=== PATIENT | female | born 1970 | race Caucasian/White ===

== ENCOUNTER 2017-07-17 10:51 | Emergency (ER) | payer SELFPAY ==
[~2017-07-17] VITALS: Ht 165.1 cm; Wt 50.0 kg
[~2017-07-17 10:51] MED LIST: LANTUSP SQ; LORTA5 PO; NOVOLOGP2 SQ; ROBA750T3 PO
[2017-07-17 10:56] VITALS: BP 120/66; PULSE 88; RESP 15; TEMP 98.1; O2SAT 98
== END 2017-07-17 11:17 | disposition left against medical advice (07) ==
LOC: NED 10:51
DX: Z04.3 Encounter for examination and observation following other accident (principal); Z53.21 Procedure and treatment not carried out due to patient leaving prior to being seen by health care provider
CPT/HCPCS: 99281

== ENCOUNTER 2017-07-25 17:48 | Emergency (ER) | payer OTHER, BC ==
[~2017-07-25] VITALS: Ht 165.1 cm; Wt 55.0 kg
[2017-07-25 18:03] VITALS: BP 100/62; PULSE 81; RESP 20; TEMP 98.8; O2SAT 97
[2017-07-25] MEDS ORDERED: INSU100V2 SQ (18:22)
[2017-07-25] MEDS ORDERED: INSU100V3 SQ (18:22)
[2017-07-25] MEDS ORDERED: IBUP-232 PO (18:25)
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
[2017-07-25] MEDS ORDERED: IBUPROFEN 600 MG TAB PO ONE (18:30)
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
== END 2017-07-25 20:16 | disposition home or self-care (01) ==
LOC: PHED 17:48
DX: S13.4XXA Sprain of ligaments of cervical spine, initial encounter (principal); E10.9 Type 1 diabetes mellitus without complications; T14.8 Other injury of unspecified body region; V43.62XA Car passenger injured in collision with other type car in traffic accident, initial encounter; Y92.410 Unspecified street and highway as the place of occurrence of the external cause; Y99.8 Other external cause status
CPT/HCPCS: 72040; 72072; 72100; 99283

== ENCOUNTER 2018-01-22 20:45 | Inpatient (IN) | payer MEDICAID ==
[~2018-01-22] VITALS: Ht 165.1 cm; Wt 47.0 kg
[~2018-01-22 20:45] MED LIST changes: +IBUP-232 PO; +INSU100V2 SQ; +INSU100V3 SQ; -LANTUSP SQ; -LORTA5 PO; -NOVOLOGP2 SQ; -ROBA750T3 PO
[2018-01-22 21:17] VITALS: BP 127/77; PULSE 98; RESP 16; TEMP 97.9; O2SAT 100
[2018-01-22 22:25] VITALS: RESP 16; O2SAT 97
[2018-01-22 23:00] VITALS: BP 119/66; PULSE 101; RESP 16; O2SAT 100
[2018-01-23] VITALS (14 sets, daily range): BP systolic 107–137; BP diastolic 51–74; PULSE 72–107; RESP 12–20; TEMP 97.7–98.8; O2SAT 98–100
[2018-01-23] MEDS ORDERED: SODIUM CHLOR 0.9% 1000 ML INJ 1,000 ML IV SCH (00:43)
[2018-01-23] MEDS ORDERED: ONDANSETRON HCL 4 MG/2 ML VIAL IVP ONE (00:45)
[2018-01-23] MEDS ORDERED: SODIUM CHLORIDE 0.9% FLUSH 10 ML FLUSH IV FLUSH PRN ×2 (00:45→03:45)
--- NOTE | 2018-01-23 01:54 | RADRPT ---
EXAM DATE/TIME: 01/23/2018 01:00 [facility] COMPARISON: No previous studies available for comparison. INDICATIONS : Abdominal pain and Vomiting. Please evaluate for possible free air.. MEDICAL HISTORY : Diabetes mellitus type I. SURGICAL HISTORY : None. ENCOUNTER: Initial ACUITY: 4 - 6 days PAIN SCORE: 10/10 LOCATION: Right chest inferior. FINDINGS: A single view of the chest demonstrates the lungs to be symmetrically aerated without evidence of mas s, infiltrate or effusion. The cardiomediastinal contours are unremarkable. Osseous structures are intact. The upper abdomen is unremarkable with no evidence of free air. CONCLUSION: 1. No acute cardiac pulmonary disease. 2. No evidence of free air. Oral Fernandez MD on January 23, 2018 at 1:07 Board Certified Radiologist. This report was verified electronically.
[2018-01-23 02:26] LABS: AUTOMATED NEUTROPHIL # 5.3 TH/MM3 (1.8-7.7); BASOPHIL % 0.5 % (0.0-2.0); EOSINOPHIL % 0.6 % (0.0-4.0); HEMATOCRIT 48.4 % (35.0-46.0); HEMOGLOBIN 17.1 GM/DL (11.6-15.3); LYMPH % 30.1 % (9.0-44.0); LYMPHOCYTE # 2.5 TH/MM3 (1.0-4.8); MEAN CELL VOLUME 94.2 FL (80.0-100.0); MEAN CORPUSCULAR HEMOGLOBIN 33.3 PG (27.0-34.0); MEAN CORPUSCULAR HGB CONC 35.4 % (32.0-36.0); MEAN PLATELET VOLUME 9.2 FL (7.0-11.0); MONO % 5.7 % (0.0-8.0); MONOCYTE # 0.5 TH/MM3 (0-0.9); NEUT % 63.1 % (16.0-70.0); PLATELET COUNT 279 TH/MM3 (150-450); RED BLOOD COUNT 5.14 MIL/MM3 (4.00-5.30); RED CELL DISTRIBUTION WIDTH 13.3 % (11.6-17.2); WHITE BLOOD COUNT 8.4 TH/MM3 (4.0-11.0)
[2018-01-23 02:42] LABS: ALBUMIN 4.5 GM/DL (3.4-5.0); ALKALINE PHOSPHATASE 108 U/L (45-117); ALT (GPT) 27 U/L (10-53); AST (GOT) 10 U/L (15-37); BICARBONATE 17.2 MEQ/L (21.0-32.0); CALCIUM 8.8 MG/DL (8.5-10.1); CHLORIDE 95 MEQ/L (98-107); CREATININE 1.12 MG/DL (0.50-1.00); GLOMERULAR FILTRATION RATE 52 ML/MIN (>89); GLUCOSE,RANDOM 403 MG/DL (74-106); SODIUM (NA) 132 MEQ/L (136-145); TOTAL BILIRUBIN ADULT 0.9 MG/DL (0.2-1.0); TOTAL PROTEIN 8.6 GM/DL (6.4-8.2)
[2018-01-23] MEDS ORDERED: INSULIN HUMAN REGULAR 1,000 UNITS/10 ML VIAL IV PUSH ONE ×2 (03:15→03:30)
[2018-01-23] MEDS ORDERED: SODIUM CHLOR 0.9% 1000 ML INJ 1,000 ML IV ONE (03:15)
[2018-01-23] MEDS ORDERED: ONDANSETRON HCL 4 MG/2 ML VIAL IV PUSH ONE (03:15)
[2018-01-23] MEDS: SODIUM CHLOR 0.9% 1000 ML INJ 1,000 ML IV SCH ×6 (03:23→23:03)
--- NOTE | 2018-01-23 03:23 | PD ---
HPI Chief Complaint: GI Complaint Time Seen by Provider: 00:43 Travel History International Travel<30 days: No Contact w/Intl Traveler<30days: No Traveled to known affect area: No History of Present Illness HPI 47-year-old female presents to the emergency department by private vehicle in the care of her family for evaluation of generalized weakness nausea vomiting diarrhea and rib pain. Patient has been sick for 4 days. Patient has history of diabetes. Patient has not been taking her medications. Patient states she is attempted to eat but has had continual she refused to be seen in the emergency department prior to this time. [facility] Past Medical History Narrative Medical Type 1 diabetes facial surgery; tobacco use alcohol use; nursing notes reviewed Diabetes: Yes (TYPE 1) Patient Takes Glucophage: No (INSULIN) Medical other: Yes (GANGLION CYST BOTH WRISTS) ?: Not Past Surgical History Other Surgery: Yes (PLATES AND SCREWS IN FACE) Social History Alcohol Use: Yes (OCCAS) Tobacco Use: Yes (1/2PPD) Substance Use: No Allergies-Medications (Allergen,Severity, Reaction): Coded Allergies: oxycodone (Unverified Allergy, Severe, Hives, 01/22/18) sulfamethoxazole (Unverified Allergy, Unknown, UNKNOWN, 01/22/18) trimethoprim (Unverified Allergy, Unknown, UNKNOWN, 01/22/18) Reported Meds & Prescriptions Reported Meds & Active Scripts Active Ibuprofen 600 Mg Tab 600 Mg PO Q6H PRN Reported Humulin R Inj (Insulin Human Regular) 1,000 Unit/10 Ml Vial 2-10 Units SQ TIDAC PRN IMPORTANT TO EAT A MEAL WITHIN 30-60 MINUTES OF DOSING Humulin N Inj (Insulin Human NPH) 1,000 Unit/10 Ml Vial 20 Units SQ HS Review of Systems Except as stated in HPI: all other systems reviewed are Neg Physical Exam Narrative GENERAL: Well-developed well-nourished female no acute distress or respiratory distress SKIN: Warm and dry. HEAD: Normocephalic. EYES: No scleral icterus. No injection or drainage. NECK: Supple, trachea midline. No JVD or lymphadenopathy. CARDIOVASCULAR: Regular rate and rhythm without murmurs, gallops, or rubs. RESPIRATORY: Breath sounds equal bilaterally. No accessory muscle use. GASTROINTESTINAL: Abdomen soft, non-tender, nondistended. MUSCULOSKELETAL: No cyanosis, or edema. BACK: Nontender without obvious deformity. No CVA tenderness. Data Data Last Documented VS Vital Signs Date Time Temp Pulse Resp B/P (MAP) Pulse Ox O2 Delivery O2 Flow Rate FiO2 01/22/18 22:25 16 97 Room Air 01/22/18 21:17 97.9 98 Orders Orders Complete Blood Count With Diff (01/23/18 00:43) Comprehensive Metabolic Panel (01/23/18 00:43) Lipase (01/23/18 00:43) Lactic Acid (01/23/18 00:43) Urinalysis - C+S If Indicated (01/23/18 00:43) Iv Access Insert/Monitor (01/23/18 00:43) Ecg Monitoring (01/23/18 00:43) Oximetry (01/23/18 00:43) Ondansetron Inj (Zofran Inj) (01/23/18 00:45) Sodium Chlor 0.9% 1000 Ml Inj (Ns 1000 M (01/23/18 00:43) Sodium Chloride 0.9% Flush (Ns Flush) (01/23/18 00:45) Electrocardiogram (01/23/18 00:43) Chest, Single Ap (01/23/18 00:43) Ed Urine Pregnancytest Poc (01/23/18 00:43) Beta Hydroxybutyrate (Acetone) (01/23/18 00:43) Magnesium (Mg) (01/23/18 00:43) Sodium Chlor 0.9% 1000 Ml Inj (Ns 1000 M (01/23/18 03:15) Blood Gas Venous Ph (01/23/18 03:14) Insulin Human Regular Inj (Novolin R Inj (01/23/18 03:15) Ondansetron Inj (Zofran Inj) (01/23/18 03:15) Aurist / Telemetry MARILYN.Q8H (01/23/18 03:23) ^ Insert Iv (01/23/18 03:23) Diet Npo (01/23/18 Breakfast) Sodium Chlor 0.9% 1000 Ml Inj (Ns 1000 M (01/23/18 03:23) Dext 5%-Nacl 0.9% 1000 Ml Inj (D5w-Ns 10 (01/23/18 03:23) Insulin Human Regular Inj (Novolin R Inj (01/23/18 03:30) Insulin Regular (Iv Infusion) (Novolin R (01/23/18 03:30) Potassium Chlor 40 Meq Premix (Kcl 40 Me (01/23/18 03:30) Potassium Chlor 40 Meq Premix (Kcl 40 Me (01/23/18 03:30) Potassium Chlor 20 Meq Premix (Kcl 20 Me (01/23/18 03:30) Potassium Chlor 20 Meq Premix (Kcl 20 Me (01/23/18 03:30) Potassium Chlor 20 Meq Premix (Kcl 20 Me (01/23/18 03:30) Potassium Chlor 20 Meq Premix (Kcl 20 Me (01/23/18 03:30) Potassium Chlor 20 Meq Premix (Kcl 20 Me (01/23/18 03:30) Potassium Chlor 20 Meq Premix (Kcl 20 Me (01/23/18 03:30) Sodium Bicarbonate 8.4% Inj (Sodium Bica (01/23/18 03:30) Sodium Bicarbonate 8.4% Inj (Sodium Bica (01/23/18 03:30) Sodium Phosphate Inj (Sodium Phosphate I (01/23/18 03:30) Hemoglobin (Hgb) A1c (01/23/18 03:23) Basic Metabolic Panel (Bmp) (01/23/18 08:23) Basic Metabolic Panel (Bmp) (01/23/18 14:23) Basic Metabolic Panel (Bmp) (01/23/18 20:23) Basic Metabolic Panel (Bmp) (01/24/18 02:23) Magnesium (Mg) (01/23/18 08:23) Magnesium (Mg) (01/23/18 14:23) Magnesium (Mg) (01/23/18 20:23) Magnesium (Mg) (01/24/18 02:23) Phosphorus (Po4) (01/23/18 08:23) Phosphorus (Po4) (01/23/18 14:23) Phosphorus (Po4) (01/23/18 20:23) Phosphorus (Po4) (01/24/18 02:23) Beta Hydroxybutyrate (Acetone) (01/23/18 14:23) Beta Hydroxybutyrate (Acetone) (01/24/18 02:23) Blood Gas Venous (Vbg) (01/23/18 03:16) Labs Laboratory Tests Test 01/23/18 00:15 01/23/18 01:15 01/23/18 03:16 White Blood Count 8.4 TH/MM3 Red Blood Count 5.14 MIL/MM3 Hemoglobin 17.1 GM/DL Hematocrit 48.4 % Mean Corpuscular Volume 94.2 FL Mean Corpuscular Hemoglobin 33.3 PG Mean Corpuscular Hemoglobin Concent 35.4 % Red Cell Distribution Width 13.3 % Platelet Count 279 TH/MM3 Mean Platelet Volume 9.2 FL Neutrophils (%) (Auto) 63.1 % Lymphocytes (%) (Auto) 30.1 % Monocytes (%) (Auto) 5.7 % Eosinophils (%) (Auto) 0.6 % Basophils (%) (Auto) 0.5 % Neutrophils # (Auto) 5.3 TH/MM3 Lymphocytes # (Auto) 2.5 TH/MM3 Monocytes # (Auto) 0.5 TH/MM3 Eosinophils # (Auto) 0.0 TH/MM3 Basophils # (Auto) 0.0 TH/MM3 CBC Comment DIFF FINAL Differential Comment Creatinine 1.12 MG/DL Random Glucose 403 MG/DL Total Protein 8.6 GM/DL Albumin 4.5 GM/DL Calcium Level 8.8 MG/DL Magnesium Level 2.0 MG/DL Alkaline Phosphatase 108 U/L Aspartate Amino Transf (AST/SGOT) 10 U/L Alanine Aminotransferase (ALT/SGPT) 27 U/L Total Bilirubin 0.9 MG/DL Sodium Level 132 MEQ/L Potassium Level 4.1 MEQ/L Chloride Level 95 MEQ/L Carbon Dioxide Level 17.2 MEQ/L Anion Gap 20 MEQ/L Estimat Glomerular Filtration Rate 52 ML/MIN Lipase 168 U/L Lactic Acid Level 0.9 mmol/L Blood Gas Puncture Site IV Blood Gas Patient Temperature 98.6 Venous Blood pH 7.26 Venous Blood Partial Pressure CO2 37 mmHg Venous Blood Partial Pressure O2 36 mmHg Venous Blood HCO3 16 mmol/L Venous Blood Oxygen Saturation 65 % Venous Blood Oxygen Content 13.2 Vol % Venous Blood Base Excess -9.7 mmol/L Oxygen Delivery Device ROOM AIR Blood Gas Inspired Oxygen 21 % [facility] Medical Decision Making Medical Screen Exam Complete: Yes Emergency Medical Condition: Yes Medical Record Reviewed: Yes Interpretation(s) Venous pH 7.256 Differential Diagnosis Dehydration, uncontrolled diabetes, DKA, UTI, sepsis, gastroenteritis Narrative Course IV access obtained patient administered 1 L normal saline with Zofran Accu-Chek ordered Metabolic panel resulted serum glucose 403 with lactic of 0.9 however bicarb is 17 with anion gap of 20 Patient will be in DKA venous pH ordered patient administered additional liter of normal saline and insulin regular 4 units IV; we will initiate DKA protocol Patient will be admitted Diagnosis Primary Impression: DKA, type 1 Mattie Koroma MD Jan 23, 2018 03:23
[2018-01-23] MEDS ORDERED: POTASSIUM CHLOR 20 MEQ PREMIX 100 ML IV PRN ×5 (03:30)
[2018-01-23] MEDS ORDERED: POTASSIUM CHLOR 40 MEQ PREMIX 100 ML IV PRN ×2 (03:30)
[2018-01-23] MEDS ORDERED: SODIUM BICARBONATE 8.4% SOLN 50 MEQ/50 ML VIAL IV PUSH PRN ×2 (03:30)
[2018-01-23] MEDS ORDERED: SODIUM PHOSPHATE INJ 15 MMOL in SODIUM CHLORIDE 0.9% INJ 100 ML IV PRN (03:30)
[2018-01-23] MEDS ORDERED: INSULIN REGULAR (IV INFUSION) 100 UNITS in SODIUM CHLORIDE 0.9% INJ 99 ML IV PRN (03:30)
[2018-01-23] MEDS ORDERED: BISACODYL 10 MG SUPP RECTAL PRN (03:45)
[2018-01-23] MEDS ORDERED: SENNOSIDES 8.6 MG TAB PO PRN (03:45)
[2018-01-23] MEDS ORDERED: MAGNESIUM HYDROXIDE SUSP 30 ML CUP PO PRN (03:45)
[2018-01-23] MEDS ORDERED: MORPHINE SULFATE 2 MG/ML INJ IV PUSH PRN (03:45)
[2018-01-23] MEDS ORDERED: LACTULOSE SYRUP 20 GM/30 ML CUP PO PRN (03:45)
[2018-01-23 04:06] LABS: BLOOD UREA NITROGEN 14 MG/DL (7-18)
[2018-01-23] MEDS: DEXT 5%-NACL 0.9% 1000 ML INJ 1,000 ML IV SCH ×4 (04:21→19:37)
--- NOTE | 2018-01-23 04:43 | HHI.HP ---
[facility] Service [facility] Primary Care Physician No Primary Care Physician Admission Diagnosis DKA; type 1 DM Diagnoses: (1) DKA (diabetic ketoacidoses) Diagnosis: Principal (2) ELVIS (acute kidney injury) Diagnosis: Principal (3) Tobacco abuse Diagnosis: Principal Travel History International Travel<30 Days: No Contact w/Intl Traveler <30 Da: No Traveled to Known Affected Are: No History of Present Illness This is a 47-year-old female with a PMH of DM and Tobacco Abuse who presented to the ER with complaints of weakness, nausea and vomiting x3-4 days. No abdominal pain or sick contacts. Denies fever or chills. States unable to take PO due to ongoing symptoms. On arrival, BP 127/77, HR 98, O2 sat 100% RA, Afebrile. Hemoglobin 17.1. CO2 17.2, AG 20, creatinine 1.12, previously 0.80 on 05/10/2011. BS 403. Beta hydroxy 9.3. pH 7.26. CXR with no acute findings. Started on Insulin gtt in ER. Reports h/o Type I DM x36yrs, no previous episodes of DKA. Review of Systems Except as stated in HPI: all other systems reviewed are Neg ROS: 14 point review of systems otherwise negative. Past Family Social History Past Medical History PMH: DM and Tobacco Abuse Past Surgical History PAST SURGICAL HISTORY: Facial Surgery Allergies: Coded Allergies: oxycodone (Unverified Allergy, Severe, Hives, 01/22/18) sulfamethoxazole (Unverified Allergy, Unknown, UNKNOWN, 01/22/18) trimethoprim (Unverified Allergy, Unknown, UNKNOWN, 01/22/18) Family History PAST FAMILY HISTORY: Reviewed. No h/o DM or CAD Social History PAST SOCIAL HISTORY: Occasional alcohol. Smokes 1/2ppd. Negative for drugs. Physical Exam Vital Signs Vital Signs Date Time Temp Pulse Resp B/P (MAP) Pulse Ox O2 Delivery O2 Flow Rate FiO2 01/22/18 22:25 16 97 Room Air 01/22/18 21:17 97.9 98 16 127/77 (94) 100 Room Air Physical Exam PE: GENERAL: Very pleasant middle-aged white female in no acute distress. HEENT: PERRLA, EOMI. No scleral icterus or conjunctival pallor. No lid lag or facial droop. CARDIOVASCULAR: Regular rate and rhythm. No obvious murmurs to auscultation. No chest tenderness to palpation. RESPIRATORY: No obvious rhonchi or wheezing. Clear to auscultation. Breath sounds equal bilaterally. GASTROINTESTINAL: Abdomen soft, non-tender, nondistended. BS normal. MUSCULOSKELETAL: Extremities without clubbing, cyanosis, or edema. No obvious deformities. NEUROLOGICAL: Awake, alert and oriented x4. No focal neurologic deficits. Moving both upper and lower extremities spontaneously. Laboratory Laboratory Tests Test 01/23/18 00:15 01/23/18 01:15 01/23/18 03:16 White Blood Count 8.4 Red Blood Count 5.14 Hemoglobin 17.1 Hematocrit 48.4 Mean Corpuscular Volume 94.2 Mean Corpuscular Hemoglobin 33.3 Mean Corpuscular Hemoglobin Concent 35.4 Red Cell Distribution Width 13.3 Platelet Count 279 Mean Platelet Volume 9.2 Neutrophils (%) (Auto) 63.1 Lymphocytes (%) (Auto) 30.1 Monocytes (%) (Auto) 5.7 Eosinophils (%) (Auto) 0.6 Basophils (%) (Auto) 0.5 Neutrophils # (Auto) 5.3 Lymphocytes # (Auto) 2.5 Monocytes # (Auto) 0.5 Eosinophils # (Auto) 0.0 Basophils # (Auto) 0.0 CBC Comment DIFF FINAL Differential Comment Blood Urea Nitrogen 14 Creatinine 1.12 Random Glucose 403 Total Protein 8.6 Albumin 4.5 Calcium Level 8.8 Magnesium Level 2.0 Alkaline Phosphatase 108 Aspartate Amino Transf (AST/SGOT) 10 Alanine Aminotransferase (ALT/SGPT) 27 Total Bilirubin 0.9 Sodium Level 132 Potassium Level 4.1 Chloride Level 95 Carbon Dioxide Level 17.2 Anion Gap 20 Estimat Glomerular Filtration Rate 52 Lipase 168 B-Hydroxybutyrate 9.30 Lactic Acid Level 0.9 Blood Gas Puncture Site IV Blood Gas Patient Temperature 98.6 Venous Blood pH 7.26 Venous Blood Partial Pressure CO2 37 Venous Blood Partial Pressure O2 36 Venous Blood HCO3 16 Venous Blood Oxygen Saturation 65 Venous Blood Oxygen Content 13.2 Venous Blood Base Excess -9.7 Oxygen Delivery Device ROOM AIR Blood Gas Inspired Oxygen 21 Result Diagram: 01/23/181401/23/18 0015 Caprini VTE Risk Assessment Caprini VTE Risk Assessment: No/Low Risk (score <= 1) Caprini Risk Assessment Model Point Value = 1 Point Value = 2 Point Value = 3 Point Value = 5 Age 41-60 Minor surgery BMI > 25 kg/m2 Swollen legs Varicose veins or History of unexplained or recurrent spontaneous Oral contraceptives or hormone replacement Sepsis (< 1 month) Serious lung disease, including pneumonia (< 1 month) Abnormal pulmonary function Acute myocardial infarction Congestive heart failure (< 1 month) History of inflammatory bowel disease Medical patient at bed rest Age 61-74 Arthroscopic surgery Major open surgery (> 45 min) Laparoscopic surgery (> 45 min) Malignancy Confined to bed (> 72 hours) Immobilizing plaster cast Central venous access Age >= 75 History of VTE Family history of VTE Factor V Leiden Prothrombin [id number] Lupus anticoagulant Anticardiolipin antibodies Elevated serum homocysteine Heparin-induced thrombocytopenia Other congenital or acquired thrombophilia Stroke (< 1 month) Elective arthroplasty Hip, pelvis, or leg fracture Acute spinal cord injury (< 1 month) Prophylaxis Regimen Total Risk Factor Score Risk Level Prophylaxis Regimen 0-1 Low Early ambulation 2 Moderate Order ONE of the following: *Sequential Compression Device (SCD) *Heparin 5000 units SQ BID 3-4 Higher Order ONE of the following medications: *Heparin 5000 units SQ TID *Enoxaparin/Lovenox 40 mg SQ daily (WT < 150 kg, CrCl > 30 mL/min) *Enoxaparin/Lovenox 30 mg SQ daily (WT < 150 kg, CrCl > 10-29 mL/min) *Enoxaparin/Lovenox 30 mg SQ BID (WT < 150 kg, CrCl > 30 mL/min) AND/OR *Sequential Compression Device (SCD) 5 or more Highest Order ONE of the following medications: *Heparin 5000 units SQ TID (Preferred with Epidurals) *Enoxaparin/Lovenox 40 mg SQ daily (WT < 150 kg, CrCl > 30 mL/min) *Enoxaparin/Lovenox 30 mg SQ daily (WT < 150 kg, CrCl > 10-29 mL/min) *Enoxaparin/Lovenox 30 mg SQ BID (WT < 150 kg, CrCl > 30 mL/min) AND *Sequential Compression Device (SCD) Assessment and Plan Problem List: (1) DKA (diabetic ketoacidoses) ICD Code: E13.10 - Other specified diabetes mellitus with ketoacidosis without coma (2) ELVIS (acute kidney injury) ICD Code: N17.9 - Acute kidney failure, unspecified (3) Tobacco abuse ICD Code: Z72.0 - Tobacco use Assessment and Plan A/P: 1. DKA: Type I DM, acute onset of nausea/vomiting, decreased PO intake. CO2 17, AG 20, pH 7.26, B-hydroxy 9. Admit to ICU, continue DKA Protocol, ICU Electrolyte Replacement, repeat labs q6h, switch to sliding scale once acidosis resolved. Check Hgb A1c. 2. ELVIS: Creatinine 1.12, previously 0.80 on 05/10/11. IVF for hydration, repeat labs in am. 3. Tobacco Abuse: Pt counselled. NicoDerm prn if needed. 4. DVT Prophylaxis: SCD/Teds. 5. Social work for d/c planning as needed. 6. Case discussed w/ ER physician at length, labs/records/imaging reviewed by me. Physician Certification 2 Midnight Certification Type: Admission for Inpatient Services Order for Inpatient Services The services are ordered in accordance with Medicare regulations or non- Medicare payer requirements, as applicable. In the case of services not specified as inpatient-only, they are appropriately provided as inpatient services in accordance with the 2-midnight benchmark. Estimated LOS (days): 2 days is the estimated time the patient will need to remain in the hospital, assuming treatment plan goals are met and no additional complications. Post-Hospital Plan: Not yet determined Valerie Kelly MD Jan 23, 2018 04:42
[2018-01-23] MEDS: SODIUM CHLORIDE 0.9% FLUSH 10 ML FLUSH IV FLUSH SCH ×2 (08:02→21:44)
[2018-01-23 08:38] LABS: BILIRUBIN, URINE NEG (NEG); BLOOD, URINE LARGE (NEG); GLUCOSE,URINE 1000 mg/dL (NEG); HYALINE CAST, URINE 1 /lpf (RARE); KETONE, URINE 150 mg/dL (NEG); MUCUS URINE FEW /lpf (OCC); NITRITE,URINE NEG (NEG); PH, URINE 5.5 (5.0-8.5); SQUAMOUS EPITHELIAL CELL URINE 1 /hpf (0-5); URINE COLOR LIGHT-YELLOW (YELLW/STRAW); URINE LEUKOCYTE ESTERASE NEG (NEG)
[2018-01-23] MEDS: DOCUSATE SODIUM 50 MG/SENNA 8.6 MG TAB PO SCH ×2 (09:00→21:00)
[2018-01-23] MEDS ORDERED: DEXTROSE 50% IN WATER 50 ML VIAL(D50) IV PUSH PRN (11:00)
[2018-01-23] MEDS ORDERED: GLUCAGON 1 MG/ML VIAL OTHER PRN (11:00)
[2018-01-23 11:49] LABS: BICARBONATE 18.1 MEQ/L (21.0-32.0); CALCIUM 7.4 MG/DL (8.5-10.1); CREATININE 0.71 MG/DL (0.50-1.00); MAGNESIUM 1.7 MG/DL (1.5-2.5); PHOSPHORUS 1.3 MG/DL (2.5-4.9)
[2018-01-23] MEDS: INSULIN ASPART SUPPLEMENTAL SCALE SQ SCH ×3 (12:00→21:00)
[2018-01-23 12:38] LABS: CALCIUM-PROTEIN CORRECTED 8.2 MG/DL (8.5-10.1); TOTAL PROTEIN 5.7 GM/DL (6.4-8.2)
[2018-01-23] MEDS: INSULIN DETEMIR 100 UNITS/ML VIAL SQ SCH (12:59)
[2018-01-23] MEDS: ONDANSETRON HCL 4 MG/2 ML VIAL IVP PRN ×2 (13:28→22:47)
[2018-01-23] MEDS: POTASSIUM CHLOR 20 MEQ PREMIX 100 ML IV PRN (13:34)
[2018-01-23 17:17] LABS: BICARBONATE 22.6 MEQ/L (21.0-32.0); BLOOD UREA NITROGEN 11 MG/DL (7-18); CHLORIDE 107 MEQ/L (98-107); GLOMERULAR FILTRATION RATE 76 ML/MIN (>89); GLUCOSE,RANDOM 167 MG/DL (74-106); MAGNESIUM 1.6 MG/DL (1.5-2.5); SODIUM (NA) 137 MEQ/L (136-145)
[2018-01-23 17:18] LABS: PHOSPHORUS 1.2 MG/DL (2.5-4.9)
--- NOTE | 2018-01-23 19:42 | EKG ---
Date Performed: 01/23/2018 Time Performed: 01:15:25 PTAGE: 47 years EKG: Sinus rhythm WITH SHORT DE INTERVAL BORDERLINE ECG NO PREVIOUS TRACING DOCTOR: Gumaro Sorto Interpretating Date/Time 01/23/2018 19:41:19
[2018-01-23] MEDS ORDERED: CHLORHEXIDINE GLUCONATE 2 % 1 PACK (2 CLOTHS)(extra cloths) TOPICAL PRN (21:45)
[2018-01-23] MEDS: ACETAMINOPHEN 325 MG TAB PO PRN (22:47)
[2018-01-24] VITALS (10 sets, daily range): BP systolic 105–174; BP diastolic 64–86; PULSE 65–93; RESP 13–37; TEMP 98.3–98.6; O2SAT 97–100
[2018-01-24 00:27] LABS: BICARBONATE 24.9 MEQ/L (21.0-32.0); CALCIUM 7.7 MG/DL (8.5-10.1); CREATININE 0.58 MG/DL (0.50-1.00); MAGNESIUM 1.5 MG/DL (1.5-2.5); PHOSPHORUS 1.4 MG/DL (2.5-4.9)
[2018-01-24] MEDS: DEXT 5%-NACL 0.9% 1000 ML INJ 1,000 ML IV SCH ×3 (03:17→09:23)
[2018-01-24] MEDS: SODIUM CHLOR 0.9% 1000 ML INJ 1,000 ML IV SCH ×3 (03:17→11:23)
[2018-01-24] MEDS ORDERED: CHLORHEXIDINE GLUCONATE 2 % 1 PACK (2 CLOTHS)(taper/protocol) TOPICAL SCH (04:00)
[2018-01-24 04:24] LABS: BICARBONATE 21.5 MEQ/L (21.0-32.0); CALCIUM 7.8 MG/DL (8.5-10.1); CREATININE 0.59 MG/DL (0.50-1.00); MAGNESIUM 1.6 MG/DL (1.5-2.5); PHOSPHORUS 1.8 MG/DL (2.5-4.9)
[2018-01-24] MEDS: POTASSIUM CHLOR 20 MEQ PREMIX 100 ML IV PRN ×2 (06:41→10:41)
[2018-01-24] MEDS: INSULIN ASPART SUPPLEMENTAL SCALE SQ SCH (08:00)
[2018-01-24] MEDS: INSULIN DETEMIR 100 UNITS/ML VIAL SQ SCH (09:00)
[2018-01-24] MEDS: ACETAMINOPHEN 325 MG TAB PO PRN (10:40)
[2018-01-24] MEDS: DOCUSATE SODIUM 50 MG/SENNA 8.6 MG TAB PO SCH (10:41)
[2018-01-24] MEDS: SODIUM CHLORIDE 0.9% FLUSH 10 ML FLUSH IV FLUSH SCH (10:41)
[2018-01-24] MEDS ORDERED: INSULIN ASPART 1,000 UNITS/10 ML VIAL SQ SCH (12:00)
[2018-01-24] MEDS ORDERED: K-PHTAB PO (12:45)
--- NOTE | 2018-01-24 12:47 | HHI.PR ---
Subjective Remarks Follow up for DKA, DM type 1. Patient is currently doing well. No acute concerns. She reports that due to stress in life, she has not been taking her medications. However, when she takes her meds regularly, her blood glucose is well controlled. No CP, SOB, fever, chills. Objective Vitals Vital Signs Date Time Temp Pulse Resp B/P (MAP) Pulse Ox O2 Delivery O2 Flow Rate FiO2 01/24/18 12:00 83 20 126/68 (87) 100 01/24/18 11:54 93 16 174/75 (108) 97 01/24/18 11:00 79 18 158/85 (109) 100 01/24/18 10:00 78 30 142/86 (104) 100 01/24/18 09:00 81 37 136/76 (96) 100 01/24/18 08:00 98.6 68 17 115/66 (82) 100 01/24/18 06:00 74 01/24/18 04:00 65 01/24/18 04:00 98.5 65 17 105/64 (78) 98 01/24/18 02:00 66 01/24/18 00:00 98.3 68 13 127/65 (85) 100 01/24/18 00:00 68 01/23/18 22:00 91 01/23/18 20:00 73 01/23/18 20:00 98.1 73 17 118/65 (82) 100 01/23/18 18:00 98.0 72 18 116/61 (79) 98 01/23/18 16:45 79 01/23/18 16:45 97.7 81 20 124/70 (88) 100 01/23/18 16:39 01/23/18 15:19 16 01/23/18 15:18 83 12 137/71 (93) 100 Room Air 01/23/18 13:59 78 14 129/71 (90) 100 Room Air 01/23/18 13:00 80 20 132/66 (88) 100 Room Air I/O 01/23/18 01/23/18 01/23/18 01/24/18 01/24/18 01/24/18 07:00 15:00 23:00 07:00 15:00 23:00 Intake Total 1039.9 ml 2480 ml Output Total 450 ml Balance 1039.9 ml 2030 ml Intake Oral 480 ml IV Total 1039.9 ml 2000 ml Output Urine Total 450 ml # Voids 3 # Bowel Movements 0 Result Diagram: 01/23/18 0015 01/24/18 0320 Imaging Last Impressions Chest X-Ray 01/23/18 0043 Signed Impressions: Service Date/Time: Tuesday, January 23, 2018 01:00 - CONCLUSION: 1. No acute cardiac pulmonary disease. 2. No evidence of free air. Oral Fernandez MD Objective Remarks GENERAL: Alert, Oriented x 3, NAD. SKIN: Warm and dry. HEAD: Normocephalic. EYES: No scleral icterus. No injection or drainage. NECK: Supple, trachea midline. No JVD or lymphadenopathy. CARDIOVASCULAR: Regular rate and rhythm without murmurs, gallops, or rubs. RESPIRATORY: Breath sounds equal bilaterally. No accessory muscle use. GASTROINTESTINAL: Abdomen soft, non-tender, nondistended. MUSCULOSKELETAL: No cyanosis, or edema. BACK: Nontender without obvious deformity. No CVA tenderness. Procedures None. A/P Problem List: (1) DKA (diabetic ketoacidoses) ICD Code: E13.10 - Other specified diabetes mellitus with ketoacidosis without coma (2) ELVIS (acute kidney injury) ICD Code: N17.9 - Acute kidney failure, unspecified (3) Tobacco abuse ICD Code: Z72.0 - Tobacco use Assessment and Plan This is a 47-year-old female with a PMH of DM and Tobacco Abuse who presented to the ER with complaints of weakness, nausea and vomiting x3-4 days. On arrival , BP 127/77, HR 98, O2 sat 100% RA, Afebrile. Hemoglobin 17.1. CO2 17.2, AG 20 , creatinine 1.12, previously 0.80 on 05/10/2011. BS 403. Beta hydroxy 9.3. pH 7.26. CXR with no acute findings. Started on Insulin gtt in ER. Reports h/ o Type I DM x36yrs, no previous episodes of DKA. - Diabetic ketoacidosis - DM type 1 - Patient received insulin drip, fluid. SQ insulin was started once Anion gap closed. - At home takes insulin NPH and Regular insulin. - When taken regularly, her BG is well controlled. - Patient is motivated to be compliant with her meds - Mild ELVIS - Creatinine 1.12 --> 0.59 resolved. - Hypokalemia 3.0 - Hypophosphatemia 1.8 - Will give one week of K-Phos. Repeat BMP, PO4 in one week. Full code. Discharge patient to home Condition on discharge: Improved Regular Diet as tolerated Ad Lindsay activity Rx written: K-Phos Follow-up with primary care physician in one week. Stacey Turk DO Jan 24, 2018 12:47
[2018-01-26 18:42] LABS: HEMOGLOBIN A1C 12.4 % (4.3-6.0)
== END 2018-01-24 13:25 | disposition home or self-care (01) | DRG 638 ==
LOC: NEPC 20:45 → NEDA 01-23 03:44 → NEDH 01-23 08:42 → HIMN 01-23 16:45
PROVIDERS: ADMIT Hospitalist; ATTEND Hospitalist
DX: E10.10 Type 1 diabetes mellitus with ketoacidosis without coma (principal); N17.9 Acute kidney failure, unspecified; E87.6 Hypokalemia; F17.210 Nicotine dependence, cigarettes, uncomplicated; E83.39 Other disorders of phosphorus metabolism; Z91.14 Patient's other noncompliance with medication regimen; Z79.4 Long term (current) use of insulin
CPT/HCPCS: 71045; 80048; 80053; 81001; 82010; 82805; 83036; 83605; 83690; 83735; 84100; 84155; 84703; 85025; 87641; 93005; 96361; 96374; 96376; 99285; J1815; J1817; J2270; J2405; J3480; J7030; J7042